=== PATIENT | female | born 1965 | race Caucasian/White ===

== ENCOUNTER → 2024-02-08 07:38 | Outpatient (CLI) | payer OTHER, SELFPAY ==
--- NOTE | 2024-02-08 07:40 | DI.ECHO.S_ITS ---
[facility] +---------+ : : [address] : : : : [id number] : : : : Phone: [phone]+ Echocardiogram Report + + :Name: JUDY CALL Study Date: 02/08/2024 Height: 68 in : :[facility] ReadingLocation: Weight: 220 lb : : Gender: Female BSA: 2.1 m2 : :: 1965 Age: 58 yrs BP: 118/81 mmHg: :Reason For Study: ESSENTIAL HYPERTENSION : :Ordering Physician: SARAH, : :LIZETT Performed By: Lobo Charles : :Referring: LIZETT SMITH : + + Interpretation Summary The ejection fraction is estimated to be 65-70%. Diastolic parameters suggest probable normal left ventricular diastolic function and normal filling pressures. The right ventricle is normal in size and function. No significant valvular abnormality. Procedure: A two-dimensional transthoracic echocardiogram with color flow and Doppler was performed. The study quality was technically adequate. There is no prior echocardiogram noted for this patient. The patient was in normal sinus rhythm during the exam. The heart rate ranged between 89-97 bpm during the study. Left Ventricle: The left ventricle is normal in size and wall thickness. The ejection fraction is estimated to be 65-70%. Diastolic parameters suggest probable normal left ventricular diastolic function and normal filling pressures. Right Ventricle: The right ventricle is normal in size and function. The right ventricular systolic function is normal. Atria: The left atrial size is normal. Right atrial size is normal. The interatrial septum grossly appears intact with no obvious evidence for an atrial septal defect. Mitral Valve: The mitral valve is normal in structure and function. There is no mitral valve stenosis. There is no mitral regurgitation noted. Aortic Valve: The aortic valve is trileaflet. There is no aortic valve stenosis. No aortic regurgitation is present. Tricuspid Valve: The tricuspid valve is normal in structure and function. There is no tricuspid stenosis. No tricuspid regurgitation. Pulmonic Valve: The pulmonic valve is not well visualized. There is no pulmonic valvular stenosis. There is no pulmonic valvular regurgitation. Great Vessels: The aortic root is normal size. The dimensions of the ascending aorta are normal. The IVC is of normal diameter and collapses greater than 50% with a sniff. This suggests a low right atrial pressure of 3 mm Hg. Pericardium/ Pleura There is no pericardial effusion. There is no pleural effusion. MMode/2D Measurements & Calculations LVIDd: 4.3 cm LVOT diam: 2.2 cm LVIDs: 3.2 cm Ao root diam: 3.1 cm FS: 24.6 % asc Aorta Diam: 3.4 cm IVSd: 0.94 cm Ao Arch Diam (Prox Trans): 2.3 cm LVPWd: 1.0 cm LV nguyen. diameter/BSA (cm/m^2): 2.0 LV sys. diameter/BSA (cm/m^2): 1.5 LA A2 area: 16.5 cm2 RA long axis: 4.3 cm LA A4 area: 13.5 cm2 RA area: 10.4 cm2 LA length (vol): 4.5 cm RA vol: 21.3 ml LA vol: 41.7 ml RA : 10.0 ml/m2 LA vol index: 19.6 ml/m2 IVC diam: 1.2 cm RVD1 (basal): 2.8 cm RVD2 (mid): 2.3 cm TAPSE: 2.1 cm Doppler Measurements & Calculations Ao V2 max: 143.4 cm/sec LVOT Max Bill: 108.7 cm/sec Ao V2 mean: 101.9 cm/sec LV V1 max P.7 mmHg Ao max P.2 mmHg LV V1 VTI: 22.8 cm Ao mean P.8 mmHg SEAN(I,D): 3.3 cm2 Ao V2 VTI: 25.6 cm SEAN(V,D): 2.8 cm2 sev ratio: 0.89 SEAN indexed to BSA (cm^2/m^2): 1.6 MV E max bill: 58.0 cm/sec PA V2 max: 111.7 cm/sec MV A max bill: 104.2 cm/sec PA V2 mean: 79.8 cm/sec MV E/A: 0.56 PA mean P.9 mmHg Med Peak E' Bill: 6.8 cm/sec PA pr(Accel): 43.0 mmHg E/E' med: 8.5 Lat Peak E' Bill: 9.7 cm/sec E/E' lat: 6.0 E/e' average: 7.2 MV dec time: 0.17 sec SV(LVOT): 85.7 ml Reading Physician:JENNIFER
== END ==
LOC: ECHO 07:39
PROVIDERS: PCP Family Medicine; Referring Provider Family Medicine; Visit Provider Family Medicine
DX: I10 Essential (primary) hypertension (principal); E11.9 Type 2 diabetes mellitus without complications; E03.9 Hypothyroidism, unspecified; Z85.43 Personal history of malignant neoplasm of ovary; Z92.21 Personal history of antineoplastic chemotherapy
CPT/HCPCS: 93306

== ENCOUNTER → 2024-02-16 11:52 | Outpatient (CLI) | payer OTHER, SELFPAY ==
[2024-02-16 14:05] LABS: TSH w/ Reflex to FT4 < 0.02 uIU/mL (0.47-4.68)
[2024-02-16 14:33] LABS: Free T4, Direct Thyroxine 2.65 ng/dL (0.78-2.19)
== END ==
PROVIDERS: PCP Family Medicine; Referring Provider Obstetrics & Gynecology; Visit Provider Obstetrics & Gynecology
DX: Z85.43 Personal history of malignant neoplasm of ovary (principal); E03.9 Hypothyroidism, unspecified
CPT/HCPCS: 36415; 84439; 84443; 86304

== ENCOUNTER → 2024-03-28 11:19 | Outpatient (CLI) | payer OTHER, SELFPAY ==
[2024-03-28 12:53] LABS: Add Manual Diff / Slide Review NO; Basophils Absolute Auto 0 /uL (0-100); Basophils Percent Auto 0.6 % (0-2); Eosinophils Absolute Auto 200 /uL (0-450); Hematocrit 32.9 % (36-46); Lymphocytes Absolute Auto 1700 /uL (1100-4500); Lymphocytes Percent Auto 35.9 % (25-40); Mean Corpuscular HGB Conc 33.5 % (30-36); Mean Corpuscular Hemoglobin 33.4 PG (26-34); Mean Corpuscular Volume 99.7 fL (80-100); Monocytes Absolute Auto 300 /uL (0-900); Monocytes Percent Auto 6.7 % (3-14); Neutrophils Absolute Auto 2500 /uL (1500-7000); Neutrophils Percent Auto 52.8 % (50-75); Platelet Count 231 X10^3/uL (150-400); Red Cell Distribution Width 15.1 % (11.6-14.8); White Blood Cell Count 4.7 X10^3/uL (4.5-11.0)
[2024-03-28 13:36] LABS: Alanine Aminotransferase 21 IU/L (<35); Albumin 4.3 g/dL (3.5-5.0); Albumin Globulin Ratio 1.4 (1.0-2.8); Alkaline Phosphatase 148 U/L (38-126); Aspartate Aminotransferase 23 IU/L (14-36); BUN Creatinine Ratio 20.6 (6-22); Bilirubin Total 0.6 mg/dL (0.2-1.3); Blood Urea Nitrogen 21 mg/dL (7-17); Calcium 9.5 mg/dL (8.4-10.2); Carbon Dioxide 29 mmol/L (22-32); Chloride 101 mmol/L (98-107); Cholesterol 136 mg/dL (140-199); Estimated Glomerular Filt Rate > 60 mL/min (>60); Glucose 374 mg/dL (70-100); HDL Cholesterol 51 mg/dL (40-60); HEMOLYSIS < 15 (0-50); LDL Cholesterol Calculated 73 mg/dL (<100); Potassium 5.2 mmol/L (3.4-5.1); Sodium 135 mmol/L (137-145); Total Protein 7.3 g/dL (6.3-8.2); Triglycerides 60 mg/dL (35-150)
[2024-03-28 14:43] LABS: Folate 3.3 ng/mL (2.76-20.0); Vitamin B12 300 pg/mL (239-931)
[2024-03-28 15:38] LABS: Hemoglobin A1C% w Est Avg Glu 12.3 % (4.0-6.0)
== END ==
PROVIDERS: PCP Family Medicine; Referring Provider Family Medicine; Visit Provider Family Medicine
DX: M79.89 Other specified soft tissue disorders (principal); I10 Essential (primary) hypertension; E11.9 Type 2 diabetes mellitus without complications; E03.9 Hypothyroidism, unspecified; G62.9 Polyneuropathy, unspecified; G62.0 Drug-induced polyneuropathy; T45.1X5A Adverse effect of antineoplastic and immunosuppressive drugs, initial encounter
CPT/HCPCS: 36415; 80053; 80061; 82607; 82746; 83036; 85025

== ENCOUNTER → 2024-04-08 09:13 | Outpatient (CLI) | payer OTHER, SELFPAY ==
--- NOTE | 2024-04-08 09:18 | DI.CT.S_ITS ---
PROCEDURE: CT ABDOMEN PELVIS W CON INDICATIONS: LEFT OVARIAN CANCER TECHNIQUE: After the administration of intravenous contrast, axial sections acquired from the lung bases to the pubic symphysis. Coronal and sagittal reformats were performed. For radiation dose reduction, the following was used: automated exposure control, adjustment of mA and/or kV according to patient size. COMPARISON: [facility] [place], RG, CT THORAX/ABDOMEN/PELVIS WITH CONTRAST, 01/04/2024, 11:39. FINDINGS: Image quality: Diagnostic. Lower Chest: Left basilar scars and atelectasis. Small hiatal hernia and mild concentric thickening at the gastroesophageal junction. ABDOMEN: Liver: No solid mass. Gallbladder: Surgically absent. Biliary ducts: Common bile duct is mildly dilated, most likely secondary to cholecystectomy. Minimal intrahepatic biliary dilation. Pancreas: No ductal dilation. Spleen: Size is within normal limits. Adrenal Glands: No adrenal nodules. Kidneys and Ureters: Mild right hydronephrosis. No renal or ureteral stones. No solid mass. No complex renal cystic lesion which requires follow up. Stomach and Bowel: Normal small bowel and colonic caliber, without significant wall thickening. Normal appendix. There is a large amount of stool in colon. Peritoneum: No abnormal intraperitoneal fluid. No free air. Ventral Wall: No significant ventral hernia. Abdominal Nodes: No retroperitoneal or mesenteric adenopathy by size criteria. Vessels: Aorta and inferior vena cava are normal in size. PELVIS: Pelvic Organs: Hysterectomy and bilateral oophorectomies. No pathological free-fluid in pelvis.. Bladder: No bladder wall thickening, accounting for underdistention. Pelvic Nodes: Mildly enlarged external iliac lymph nodes are seen bilaterally, unchanged in size. -right external iliac lymph node, 1.1 x 1.2 cm. -left external iliac lymph node, 1.0 x 1.4 cm. Miscellaneous: No inguinal hernias are seen. Bones: No aggressive osseous abnormality. Moderate to severe spondylitic changes noted. IMPRESSION: Stable exam. 1. Stable mildly enlarged external iliac lymph nodes bilaterally. 2. Postsurgical changes with hysterectomy and bilateral oophorectomies. No findings to suggest local recurrent cancer or peritoneal carcinomatosis. Dictated by: Luca Quispe M.D. on 04/08/2024 at 15:24 Approved by: Luca Quispe M.D. on 04/08/2024 at 15:53
[2024-04-08 09:56] LABS: Add Manual Diff / Slide Review NO; Basophils Absolute Auto 0 /uL (0-100); Basophils Percent Auto 0.5 % (0-2); Eosinophils Absolute Auto 200 /uL (0-450); Hematocrit 33.1 % (36-46); Hemoglobin 11.3 g/dL (12.0-16.0); Lymphocytes Absolute Auto 1900 /uL (1100-4500); Lymphocytes Percent Auto 39.2 % (25-40); Mean Corpuscular Hemoglobin 33.1 PG (26-34); Mean Corpuscular Volume 97.4 fL (80-100); Monocytes Absolute Auto 400 /uL (0-900); Monocytes Percent Auto 8.1 % (3-14); Neutrophils Absolute Auto 2300 /uL (1500-7000); Neutrophils Percent Auto 48.2 % (50-75); Platelet Count 211 X10^3/uL (150-400); Red Cell Distribution Width 14.7 % (11.6-14.8); White Blood Cell Count 4.8 X10^3/uL (4.5-11.0)
[2024-04-08 10:14] LABS: Alanine Aminotransferase 22 IU/L (<35); Albumin 4.2 g/dL (3.5-5.0); Albumin Globulin Ratio 1.2 (1.0-2.8); Alkaline Phosphatase 112 U/L (38-126); Aspartate Aminotransferase 23 IU/L (14-36); BUN Creatinine Ratio 20.2 (6-22); Bilirubin Total 0.6 mg/dL (0.2-1.3); Blood Urea Nitrogen 20 mg/dL (7-17); Calcium 9.7 mg/dL (8.4-10.2); Carbon Dioxide 26 mmol/L (22-32); Chloride 104 mmol/L (98-107); Estimated Glomerular Filt Rate > 60 mL/min (>60); Globulin 3.4 g/dL (1.7-4.1); Glucose 305 mg/dL (70-100); HEMOLYSIS < 15 (0-50); Potassium 4.2 mmol/L (3.4-5.1); Sodium 138 mmol/L (137-145); Total Protein 7.6 g/dL (6.3-8.2)
[2024-04-08 10:44] LABS: Cancer Antigen 125 6.8 U/mL (0-35)
== END ==
PROVIDERS: PCP Family Medicine; Referring Provider Internal Medicine Hematology & Oncology; Visit Provider Internal Medicine Hematology & Oncology
DX: C56.2 Malignant neoplasm of left ovary (principal); I82.432 Acute embolism and thrombosis of left popliteal vein; R59.0 Localized enlarged lymph nodes; K44.9 Diaphragmatic hernia without obstruction or gangrene; N13.30 Unspecified hydronephrosis; Z90.710 Acquired absence of both cervix and uterus; Z90.722 Acquired absence of ovaries, bilateral; Z90.49 Acquired absence of other specified parts of digestive tract
CPT/HCPCS: 36415; 74177; 80053; 85025; 86304; Q9967

== ENCOUNTER → 2024-07-05 11:54 | Outpatient (CLI) | payer OTHER, SELFPAY ==
--- NOTE | 2024-07-05 11:55 | DI.US.S_ITS ---
PROCEDURE: US THYROID INDICATIONS: Abnormal thyroid labs TECHNIQUE: Real-time scanning was performed of the thyroid gland, with image documentation. COMPARISON: [facility], [place], RG, CT THORAX/ABDOMEN/PELVIS WITH CONTRAST, 01/04/2024, 11:39. FINDINGS: Thyroid: Right lobe measures 3 x 0.9 x 0.8 cm. Left lobe measures 3.5 x 1 x 0.9 cm. Isthmus is 0.3 cm thick. Echotexture is heterogeneous. No focal thyroid nodules are seen. IMPRESSION: Small size of the thyroid, which appears heterogeneous. ACR TI-RADS definitions and recommendations: TI-RADS 1 (benign): 0 points. FNA not needed. TI-RADS 2 (not suspicious): 2 points. FNA not needed. TI-RADS 3 (mildly suspicious): 3 points. * FNA if 2.5 cm or larger, follow up if 1.5 cm or larger (at 1, 3, and 5 years). TI-RADS 4 (moderately suspicious): 4-6 points. * FNA if 1.5 cm or larger, follow up if 1 cm or larger (at 1, 2, 3, and 5 years). TI-RADS 5 (highly suspicious): 7 points or more. * FNA if 1 cm or larger, follow up if 0.5 cm or larger (every year for 5 years). Dictated by: Brent Cabrera M.D. on 07/05/2024 at 16:51 Approved by: Brent Cabrera M.D. on 07/05/2024 at 16:52
== END ==
PROVIDERS: PCP Family Medicine; Referring Provider Family Medicine; Visit Provider Family Medicine
DX: E03.9 Hypothyroidism, unspecified (principal)
CPT/HCPCS: 76536

== ENCOUNTER → 2025-01-14 14:52 | Outpatient (CLI) | payer OTHER, SELFPAY ==
[2025-01-14 15:47] LABS: Appearance Urine UA CLOUDY; Bilirubin Urine UA NEGATIVE (NEGATIVE); Color Urine UA YELLOW; Glucose Urine UA 3+ g/dL (Negative); Ketones Urine UA NEGATIVE (NEGATIVE); Leukocyte Esterase Urine UA TRACE (NEGATIVE); Nitrite Urine UA POSITIVE (Negative); Occult Blood Urine UA 2+ (Negative); Protein Urine UA TRACE (Negative); Specific Gravity Urine UA 1.015 (1.000-1.035)
[2025-01-14 15:48] LABS: pH Urine UA 5.5 (4.5-8.0)
[2025-01-14 15:55] LABS: Urine Volume 10mL (spun)
[2025-01-14 15:56] LABS: Amorphous Sediment Urine 1+; Bacteria Urine Many (>30); Culture Indicated Urine Specimen Cultured; RBC Urine 1-5/HPF (0-5/HPF); Squamous Epithelial Cell Urine 10-30 /HPF (0-5/HPF); WBC Urine 10-30/HPF (0-5/HPF)
[2025-01-14 17:19] LABS: Hemoglobin A1C% w Est Avg Glu 12.5 % (4.0-6.0)
[2025-01-14 17:46] LABS: Free T4, Direct Thyroxine 1.37 ng/dL (0.78-2.19)
[2025-01-14 18:00] LABS: Thyroid Stimulating Hormone 0.019 uIU/mL (0.47-4.68)
[2025-01-14 18:03] LABS: Cancer Antigen 125 9.6 U/mL (0-35)
== END ==
PROVIDERS: PCP Family Medicine; Referring Provider Family Medicine; Visit Provider Family Medicine
DX: E03.9 Hypothyroidism, unspecified (principal); E11.9 Type 2 diabetes mellitus without complications; I10 Essential (primary) hypertension; Z85.43 Personal history of malignant neoplasm of ovary; G62.0 Drug-induced polyneuropathy; T45.1X5A Adverse effect of antineoplastic and immunosuppressive drugs, initial encounter; R53.83 Other fatigue; R30.0 Dysuria
CPT/HCPCS: 36415; 81001; 83036; 84439; 84443; 86304; 87077; 87086

== ENCOUNTER → 2025-05-14 15:52 | Outpatient (CLI) | payer OTHER, SELFPAY ==
--- NOTE | 2025-05-14 15:54 | DI.MG.S_ITS ---
MM screening mammo BI: 05/14/2025. BI-RADS: 1 CLINICAL: 59-year old female for bilateral screening mammogram. Tyrer-Cuzick lifetime risk of 25.1%. No personal or first-degree family history of breast cancer. Current reported family history of breast cancer: paternal aunt. Personal history of ovarian cancer. PRIOR EXAMS: 10/26/2015. MAMMOGRAPHY TECHNIQUE: 2D and 3D (tomosynthesis) digital mammographic views obtained, with additional images as needed for full coverage. Current study was also evaluated with a Computer Aided Detection (CAD) system. DENSITY C. The breasts are heterogeneously dense, which may obscure small masses. MAMMOGRAPHY FINDINGS Bilateral: No suspicious mass, asymmetry, microcalcification, or other abnormality seen. IMPRESSION: * No evidence of malignancy. RECOMMENDATIONS Bilateral * According to the Tyrer-Cuzick Risk Assessment Model, based on the information provided your patient has a greater than 20% lifetime risk for developing breast cancer. Consider supplemental screening with breast MRI and participation in a high risk screening program. * Annual screening mammography. OVERALL ASSESSMENT CATEGORY BI-RADS-1: Negative. The [employer] recommends annual screening mammography beginning at age 40 for women with average risk of breast cancer. ELECTRONICALLY SIGNED: Irwin Way M.D. on 05/15/2025 at 08:30:46 AM PT Interpreting Station ID: [id number]
== END ==
PROVIDERS: PCP Family Medicine; Referring Provider Family Medicine; Visit Provider Family Medicine
DX: Z12.31 Encounter for screening mammogram for malignant neoplasm of breast (principal); R92.333 Mammographic heterogeneous density, bilateral breasts; Z85.43 Personal history of malignant neoplasm of ovary; Z80.3 Family history of malignant neoplasm of breast
CPT/HCPCS: 77063; 77067

== ENCOUNTER → 2025-05-19 11:38 | Outpatient (CLI) | payer OTHER, SELFPAY ==
[2025-05-20 19:07] LABS: Fecal Immunochemical Test Negative (Negative)
== END ==
LOC: LAB 11:39
PROVIDERS: PCP Family Medicine; Referring Provider Family Medicine; Visit Provider Family Medicine
DX: Z12.11 Encounter for screening for malignant neoplasm of colon (principal)
CPT/HCPCS: 82274